=== PATIENT | male | born 2000 | race Two or more races ===

== ENCOUNTER 2018-08-11 12:03 | Emergency (ER) | payer OTHER ==
[~2018-08-11] VITALS: Wt 65.0 kg
[2018-08-11 12:05] VITALS: BP 134/74; PULSE 59; RESP 18
[2018-08-11] MEDS ORDERED: ACETAMINOPHEN 325 MG TAB PO ONE (13:30)
[2018-08-11] MEDS ORDERED: IBUP-1542 PO (15:07)
--- NOTE | 2018-08-11 15:11 | ERD ---
ER Documentation Chief Complaint Chief Complaint R FOOT PAIN AND INJURY FROM YESTERDAY. NO DEFORMITY NOTED. HPI 18-year-old male presents with pain in the right foot after twisting it yeste rday off a curb. He has no restricted range of motion, weakness, bleeding or redness. ROS All systems reviewed and are negative except as per history of present illness. Medications Home Meds Active Scripts Ibuprofen* (Motrin*) 600 Mg Tab, 600 MG PO Q6, #20 TAB Prov:LINDA LAMAR MD 08/11/18 Allergies Allergies: Coded Allergies: Penicillins (Verified Allergy, Unknown, 08/11/18) PMhx/Soc History of Surgery: Yes (appendectomy) Hx Neurological Disorder: No Hx Respiratory Disorders: Yes (asthma) Hx Cardiac Disorders: No Hx Miscellaneous Medical Probl: No Hx Alcohol Use: Yes (social) Hx Substance Use: Yes (marijuana) Hx Tobacco Use: Yes Smoking Status: Current some day smoker FmHx Family History: No diabetes, No coronary disease, No other Physical Exam Vitals Vital Signs Date Temp Pulse Resp B/P (MAP) Pulse Ox O2 O2 Flow FiO2 Time Delivery Rate 08/11/18 98.1 59 18 134/74 98 12:05 (94) Physical Exam Const: No acute distress Head: Atraumatic Eyes: Normal Conjunctiva ENT: Normal External Ears, Nose and Mouth. Neck: Full range of motion. No meningismus. Resp: Clear to auscultation bilaterally Cardio: Regular rate and rhythm, no murmurs Abd: Soft, non tender, non distended. Normal bowel sounds Skin: No petechiae or rashes Back: No midline or flank tenderness Ext: No cyanosis, or edema. Tenderness right fifth metatarsal base with mild swelling. Mild tenderness to right lateral malleolus. No deformities, restricted range of motion weakness or warmth or erythema. Neur: Awake and alert Psych: Normal Mood and Affect Results 24 hrs Current Medications Medications Dose Sig/Annmarie Start Time Status Last (Trade) Ordered Route PRN Stop Time Admin Dose Reason Admin 650 mg ONCE ONCE 08/11/18 DC 08/11/18 Acetaminophen PO 13:30 13:36 (Tylenol 08/11/18 13:31 Tab) Procedures/MDM X-ray right ankle 3V Interpreted by me: Bones: Nondisplaced right base of the fifth metatarsal fracture. Joints: No dislocation Foreign Body: None impression-nondisplaced right fifth metatarsal base fracture X-ray right foot 3V Interpreted by me: Bones: No fracture Joints: No dislocation Foreign body: None impression Nondisplaced right fifth metatarsal base fracture. Patient is placed in a right short leg splint and neurovascular intact after splint. Patient is to be given crutches with crutch training. Patient presents with nondisplaced right fifth metatarsal base fracture without signs of infection, ischemia or deficits. He will be discharged home with primary care and orthopedic follow-up. Return for fevers, redness, new worsening symptoms. Departure Diagnosis: Primary Impression: Foot fracture, right Encounter type: initial encounter Fracture type: closed Qualified Codes: S92.901A - Unspecified fracture of right foot, initial encounter for closed fracture Condition: Stable Patient Instructions: Fracture, Foot Additional Instructions: There is a small fracture or crack in the area of pain. See orthopedist for further motion treatment. May need authorization from primary doctor for orthopedist visit. LINDA LAMAR MD Aug 11, 2018 15:11
== END 2018-08-11 15:57 | disposition home or self-care (01) ==
LOC: FTE 12:03
DX: S92.354A Nondisplaced fracture of fifth metatarsal bone, right foot, initial encounter for closed fracture (principal); J45.909 Unspecified asthma, uncomplicated; F17.210 Nicotine dependence, cigarettes, uncomplicated; X50.1XXA Overexertion from prolonged static or awkward postures, initial encounter; Y92.9 Unspecified place or not applicable
CPT/HCPCS: 29515; 73610; 73630; Z7502; Z7610